=== PATIENT | male | born 1960 | race Caucasian/White ===

== ENCOUNTER 2017-03-27 17:24 | Emergency (ER) | payer OTHER ==
[~2017-03-27] VITALS: Ht 185.4 cm; Wt 110.0 kg
[2017-03-27] MEDS ORDERED: AMBIEN5 MG PO (18:11)
[2017-03-27] MEDS ORDERED: TORADOL PO (19:00)
[2017-03-27] MEDS ORDERED: FLEXERIL PO (19:00)
[2017-03-27 19:28] VITALS: BP 124/78
== END 2017-03-27 19:35 | disposition home or self-care (01) | DRG 914 ==
LOC: ED 17:24
DX: S09.90XA Unspecified injury of head, initial encounter (principal); S86.811A Strain of other muscle(s) and tendon(s) at lower leg level, right leg, initial encounter; S86.812A Strain of other muscle(s) and tendon(s) at lower leg level, left leg, initial encounter; V28.4XXA Motorcycle driver injured in noncollision transport accident in traffic accident, initial encounter